=== PATIENT | female | born 1985 | race Caucasian/White ===

== ENCOUNTER 2024-09-27 15:58 | Emergency (ER) | payer OTHER, SELFPAY ==
[2024-09-27 16:19] VITALS: BP 146/85; PULSE 98; RESP 16; O2SAT 98
--- NOTE | 2024-09-27 16:23 | PC.NURSE ---
patients primary response in triage is i don't know . patient reports she does not want a pharmacy put in because she uses essential oils.
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
[2024-09-27 20:00] VITALS: BP 142/89; PULSE 89; O2SAT 99
[2024-09-27 20:48] VITALS: BP 143/86; PULSE 95; O2SAT 99
== END 2024-09-27 20:58 | disposition home or self-care (01) ==
PROVIDERS: Emergency Provider Physician Assistant
DX: S90.02XA Contusion of left ankle, initial encounter (principal); V89.2XXA Person injured in unspecified motor-vehicle accident, traffic, initial encounter; S16.1XXA Strain of muscle, fascia and tendon at neck level, initial encounter; S00.03XA Contusion of scalp, initial encounter
CPT/HCPCS: 70450; 71045; 72125; 73030; 73610; 99284; J9999